=== PATIENT | female | born 1975 | race Caucasian/White ===

== ENCOUNTER 2018-01-06 02:56 | Observation (INO) ==
[2018-01-06] MEDS ORDERED: Acetaminophen 500 MG Tablet PO PRN (09:06)
[2018-01-06] MEDS ORDERED: Morphine Inj 4 MG/ML Vial IV.PUSH PRN (09:06)
--- NOTE | 2018-01-06 10:11 | P.HP ---
History of Present Illness Primary Care Physician: Dr Nuñez Chief Complaint: Chest pain History of Present Illness: This is a pleasant 43-year-old female patient who presented to the ER with chest pain. Patient states that around 7 PM last evening she developed a left- sided chest pain that was characterized as sharp and squeezing in nature, radiated up her neck with associated sweating and fatigue. Patient states that the pain lasted a couple minutes and then went away on its own, denies any known aggravating or alleviating factors. Patient states that the pain had resolved, she went to bed took an aspirin and antiacid prior to sleep with mild improvement in pain, states that she woke up around 2:30 in the morning covered in sweat and worsening pain especially with breathing. Has been brought her to the ED. Patient states the pain is 5 out of 10 at its worst on pain scale, comes and goes, currently is pain-free although is intermittent secondary to activity. She states she has never had this pain before. Patient denies any recent fevers, chills, cough, headache, dumping, nausea, vomiting, diarrhea or dysuria. Patient does have a history of anemia, receives IV iron transfusions routinely. She does state that she had a cardiac treadmill stress test in 2009 related to her low iron, which was reportedly unremarkable. Patient denies any trauma to chest. Does not take any medications at home. Does use a vapor for nicotine. Significant family medical history of father having an [facility] in his early 40s. - Diagnosis (1) Chest pain Review of Systems All other systems reviewed negative except as stated in HPI [facility] - History History Provided By: Patient - Medical History Medical History: Medical History (Last Updated 01/06/18 @ 03:06 by Zeny Pendleton RN) Anemia - Surgical History Surgical History: Surgical History (Last Updated 01/06/18 @ 03:06 by Zeny Pendleton RN) No history of previous surgery - Family History Family History: Family History (Last Updated 01/06/18 @ 10:30 by Bisi Bradley) Mother No problems noted. Father Cardiovascular disease - Tobacco History Second Hand Smoke Exposure: No Smoking Status: Never smoker Tobacco Type: E-Cigarettes - Alcohol History How Often Do You Have a Drink Containing Alcohol: Monthly or less - Substance Use History Substance History: No History of Abuse Medications and Allergies Active Medications: Active Medications Acetaminophen (Tylenol) 500 mg PO Q4H PRN PRN Reason: HEADACHE Morphine Sulfate (Morphine Inj) 2 mg IV.PUSH Q4H PRN PRN Reason: PAIN SCALE 8 TO 10 Nitroglycerin (Nitro-Bid 2% Oint) 1 inch TOPICAL Q6HR ALEX Sodium Chloride (Ns Flush) 2 ml IV.FLUSH BID ALEX Sodium Chloride (Ns Flush) 2 ml IV.FLUSH PRN PRN PRN Reason: FLUSH AFTER USING IV ACCESS Sodium Chloride (Ns Flush) 2 ml IV.FLUSH BID ALEX Sodium Chloride (Ns Flush) 2 ml IV.FLUSH PRN PRN PRN Reason: FLUSH AFTER USING IV ACCESS Allergies Allergy/AdvReac Type Severity Reaction Status Date / Time Penicillins Allergy Rash Verified 01/06/18 03:02 Home Medications Medication Instructions Recorded Confirmed Type Iron (ferrous sulfate) 1 tab PO DAILY 01/06/18 01/06/18 History multivitamin 1 tab PO DAILY 01/06/18 01/06/18 History Exam Vital signs: Vital Signs 01/06/18 08:57 Temperature 97.8 F Pulse Rate 76 Respiratory Rate 21 Blood Pressure 141/71 H Pulse Oximetry 98 Narrative: GENERAL: Well-developed, well-nourished patient in [facility]. SKIN: Warm and dry. No rash. HEAD: Normocephalic. Atraumatic. EYES: Pupils equal and round. No scleral icterus. No injection or drainage. ENT: No nasal bleeding or discharge. Mucous membranes pink and moist. NECK: Supple. Trachea midline. CARDIOVASCULAR: Regular rate and rhythm. S1, S2 noted. No murmur appreciated. No chest pain to palpation RESPIRATORY: No accessory muscle use. Clear to auscultation. Breath sounds equal bilaterally. GASTROINTESTINAL: Abdomen soft, non-tender, nondistended. Normoactive bowel sounds x4. MUSCULOSKELETAL: No obvious deformities. Extremities without clubbing, cyanosis , or edema. NEUROLOGICAL: Awake and alert. No obvious cranial nerve deficits. Motor grossly within normal limits. 5/5 muscle strength in bilateral upper and lower extremities. Normal speech. PSYCHIATRIC: Appropriate mood and affect; insight and judgment normal. Caprini VTE Risk Assessment Caprini VTE Risk Assessment: No/Low Risk (score <= 1) VTE Pharmacological Exception Reason: Documented Caprini Risk Assessment Model: Point Value = 1 Point Value = 2 Point Value = 3 Point Value = 5 Age 41-60 Minor surgery BMI > 25 kg/m2 Swollen legs Varicose veins or History of unexplained or recurrent spontaneous Oral contraceptives or hormone replacement Sepsis (< 1 month) Serious lung disease, including pneumonia (< 1 month) Abnormal pulmonary function Acute myocardial infarction Congestive heart failure (< 1 month) History of inflammatory bowel disease Medical patient at bed rest Age 61-74 Arthroscopic surgery Major open surgery (> 45 min) Laparoscopic surgery (> 45 min) Malignancy Confined to bed (> 72 hours) Immobilizing plaster cast Central venous access Age >= 75 History of VTE Family history of VTE Factor V Leiden Prothrombin [id number] Lupus anticoagulant Anticardiolipin antibodies Elevated serum homocysteine Heparin-induced thrombocytopenia Other congenital or acquired thrombophilia Stroke (< 1 month) Elective arthroplasty Hip, pelvis, or leg fracture Acute spinal cord injury (< 1 month) Prophylaxis Regimen: Total Risk Factor Score Risk Level Prophylaxis Regimen 0-1 Low Early ambulation 2 Moderate Order ONE of the following: *Sequential Compression Device (SCD) *Heparin 5000 units SQ BID 3-4 Higher Order ONE of the following medications: *Heparin 5000 units SQ TID *Enoxaparin/Lovenox 40 mg SQ daily (WT < 150 kg, CrCl > 30 mL/min) *Enoxaparin/Lovenox 30 mg SQ daily (WT < 150 kg, CrCl > 10-29 mL/min) *Enoxaparin/Lovenox 30 mg SQ BID (WT < 150 kg, CrCl > 30 mL/min) AND/OR *Sequential Compression Device (SCD) 5 or more Highest Order ONE of the following medications: *Heparin 5000 units SQ TID (Preferred with Epidurals) *Enoxaparin/Lovenox 40 mg SQ daily (WT < 150 kg, CrCl > 30 mL/min) *Enoxaparin/Lovenox 30 mg SQ daily (WT < 150 kg, CrCl > 10-29 mL/min) *Enoxaparin/Lovenox 30 mg SQ BID (WT < 150 kg, CrCl > 30 mL/min) AND *Sequential Compression Device (SCD) Assessment and Plan - Assessment (1) Chest pain Code(s): R07.9 - Chest pain, unspecified Status: Acute - Plan This is a 43-year-old female patient with: Chest pain -Patient has been admitted to the chest pain center for observation unit to rule out ACS. -Serial EKGs and serial troponins have been ordered for ruling out ACS purposes. Troponin trend flat. -EKG reviewed, nonspecific ST changes, no indication of any ischemia. Chest pain is resolved at this time. Was given nitroglycerin in the ED. -Will continue cardiac telemetry, monitor for any arrhythmias. Chest x-ray reviewed and negative for any acute cardiopulmonary disease. D-dimer negative. -CBC and BMP reviewed, essentially unremarkable. BMP negative. -Patient will undergo a cardiac nuclear stress test to further rule out any ischemia. -Further hospitalization and treatment plan will depend on nuclear imaging results. -Patient is stable at this time and agreeable to the plan. DVT Prophylaxis: SCDs. Ambulation. Discharge Planning: Awaiting nuclear imaging results.
[2018-01-06 10:13] LABS: Creatine Kinase 51 U/L (26-192)
[2018-01-06 12:00] VITALS: O2SAT 99
[2018-01-06 12:02] VITALS: BP 139/80; PULSE 74; RESP 18; TEMP 96.8
[2018-01-06] MEDS ORDERED: Regadenoson Inj 0.4 MG/5 ML Syringe IV.PUSH ONE (12:25)
--- NOTE | 2018-01-06 13:43 | NM ---
EXAM DATE: 01/06/2018 1:38 PM EDT AGE/SEX: 43 years / Female INDICATIONS:Angina. . Left sided chest pain radiating to neck with diaphoresis. CLINICAL DATA: This is the patient's initial encounter. Patient reports that signs and symptoms have been present for 1 day and indicates a pain score of 5/10. MEDICAL/SURGICAL HISTORY: Anemia. None. COMPARISON: No prior exams available for comparison. DOSE: 8.5 mCi Tc 99m Myoview at rest 25.4 mCi [id number] at stress 0.4 mg Lexiscan STRESS SYMPTOMS: Dyspnea, nausea, arms tingling, flushed and headache. EJECTION FRACTION: 56 % TECHNIQUE: The patient underwent pharmacologic stress with infusion of prescribed dose. Continuous ECG tracing was monitored during stress. Gated SPECT imaging was performed after stress and conventi onal SPECT imaging was performed at rest. The examination was performed on a SPECT/CT scanner, both attenuation and non-corrected datasets were reviewed. FINDINGS: Distribution: The maximum perfused segment at stress is in the inferolateral wall wall. Perfusion Study: The pattern of perfusion at stress is within normal limits. Gated Study: There are intact wall motion and wall thickening without hypokinetic or dyskinetic segm ents. The ejection fraction is calculated at 56%. RISK CATEGORY: Low (<1% Annual Motality Rate) CONCLUSION: 1. No evidence of ischemia or redistribution is identified Electronically signed by: Jadon Valencia MD 01/06/2018 1:42 PM EDT
--- NOTE | 2018-01-06 16:50 | TR ---
Date Performed: 01/06/2018 Time Performed: 12:48:20 DOCTOR: Vivienne Rao DRUG LIST: CLINICAL HISTORY: CHEST PAIN REASON FOR TEST: Chest pain REASON FOR ENDING: OBSERVATION: CONCLUSION: Lexiscan stress test was performed under standard four minute protocol. Radionuclid e was injected one minute prior to ending the test. No electrocardiographic abormalities were present to suggest ischemia. Nuclear imaging and interpretation are pending. COMMENTS: No electrocardiographic abormalities were present to suggest ischemia. Nuclear imaging and interpretation are pending.
--- NOTE | 2018-01-06 17:52 | ECG ---
Date Performed: 01/06/2018 Time Performed: 09:28:20 PTAGE: 43 years EKG: Sinus rhythm Since the previous tracing, no significant change noted NORMAL ECG NO PREVIOUS TRACING DOCTOR: Vivienne Rao Interpretating Date/Time 01/06/2018 17:49:08
== END 2018-01-06 15:51 | disposition home or self-care (01) ==
LOC: PH3 02:56 → PHEDDLT 02:56
PROVIDERS: ADMIT Family Medicine; ATTEND Family Medicine